=== PATIENT | female | born 1995 | race Caucasian/White ===

== ENCOUNTER 2017-01-16 20:22 | Inpatient (IN) | payer OTHER ==
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
--- NOTE | ~2017-01-16 | DS ---
Unit #: [id number] #: [id number] Patient: EMMA CAMPO [id number] [facility] [place] [address] [id number] MR#: [id number] NAME: EMMA CAMPO ROOM: P252 Age: 21 Sex: F Admission Date: 01/16/2017 : 1995 Discharge Date: 01/22/2017 Attending Physician: Siva Thomas M.D. Primary Care Physician: Primary Care Physician No DISCHARGE SUMMARY IDENTIFYING DATA Ms. Campo is a 21-year-old single white female, who is a resident of [place], [place] and was referred and transferred to us from [facility]. DISCHARGE DIAGNOSES Psychiatric: Major depressive disorder, recurrent, moderate, without psychotic features; generalized anxiety disorder. Medical: Seizure disorder. Stressors: Moderate psychosocial stressors. HISTORY OF PRESENT ILLNESS Please see initial psychiatric evaluation for details. PAST PSYCHIATRIC HISTORY Please see initial psychiatric evaluation for details. PAST MEDICAL HISTORY Please see initial psychiatric evaluation for details. HOSPITAL COURSE The patient [facility] and was oriented to the hospital environment. Routine p.r.n. medications were initiated, and she was started back on her home medications. Medications were adjusted and Prozac was started and increased to 40 mg a day and Vistaril was given to help her with the anxiety and doxepin was given to help her sleep as she was initially on trazodone, was complaining of some tolerability issues with the medication. She was taking medications regularly and was tolerating them fairly well and was able to show a decent and therapeutic response and was willing to continue treatment on an outpatient basis and as such, it was decided that she will be discharged home and will continue treatment on an outpatient basis. DISCHARGE MEDICATIONS Prozac 40 mg a day for depression, doxepin 50 mg at bedtime for sleep, Vistaril 50 mg t.i.d. for anxiety. DISCHARGE CONDITION Stable. PROGNOSIS Fair. Unit #: [id number] #: [id number] Patient: EMMA CAMPO Dictated by... Siva Thomas M.D. IAA/modl TD: 01/22/2017 07:09 JOB #: [id number] DISCHARGE SUMMARY X Siva Thomas MD DISCHARGE SUMMARY
--- NOTE | ~2017-01-16 | PN ---
Unit #: [id number] #: [id number] Patient: EMMA HOUSER [id number] [facility] [address] [place] [address] [id number] MR#: [id number] NAME: EMMA HOUSER ROOM: P252 Age: 21 Sex: F Admission Date: 01/16/2017 : 1995 Attending Physician: Siva Thomas M.D. Admitting Physician: Siva Thomas M.D. Primary Care Physician: Primary Care Physician Judit GUAN PROGRESS NOTES DATE OF SERVICE: 01/17/2017 SUBJECTIVE Ms. Houser is a 21-year-old white female who was seen today and chart was reviewed, and case was discussed with the staff. She has been anxious, withdrawn, though has not shown any agitation or irritability and has been cooperative with treatment recommendations and has been taking the medications and tolerating them fairly well with no reported side effects. MENTAL STATUS EXAMINATION Young white female who was casually dressed with a fair personal hygiene and appears to be in no acute distress or discomfort. She was awake and alert with intact orientation. Her mood was anxious with a congruent affect. She denies any suicidal or homicidal ideations. Her insight and judgment remain slightly impaired. TREATMENT PLAN 1. We will continue on her current medications and treatment protocol. We will monitor her response to medications and make further adjustments as needed. 2. We will continue to follow up. Dictated by... Genevieve Gustafson/angelique TD: 01/23/2017 02:52 JOB #: [id number] [facility] PROGRESS NOTES X Siva Thomas MD PROGRESS NOTE
--- NOTE | ~2017-01-16 | PN ---
Unit #: [id number] #: [id number] Patient: EMMA CAMPO [id number] [facility] [address] [place] [address] [id number] I MR#: [id number] NAME: EMMA CAMPO ROOM: P252 Age: 21 Sex: F Admission Date: 01/16/2017 : 1995 Attending Physician: Siva Thomas M.D. Admitting Physician: Siva Thomas M.D. Primary Care Physician: Primary Care Physician Judit GUAN PROGRESS NOTES DATE 01/19/2017 DISCUSSION Ms. Campo is a 21-year-old white female who was seen today and chart was reviewed and case was discussed with the staff. She has been anxious, withdrawn though has not shown any agitation and has been rather calm and cooperative with treatment recommendations as she has been taking medications and tolerating them fairly well with no reported side effects. MENTAL STATUS EXAMINATION Young white female who was casually dressed with fair personal hygiene and appears to be in no acute distress or discomfort. She was awake and alert on interaction with intact orientation. Her mood was anxious with congruent affect. She denies any suicidal or homicidal ideations. Her insight and judgement remains slightly impaired. TREATMENT PLAN 1. Will continue on current medications and treatment protocol. Will monitor her response to the medications and make further adjustments as needed. 2. Will continue to follow up. Dictated by... Siva Thomas M.D. IAA/lynn TD: 01/20/2017 16:13 JOB #: [id number] Unit #: [id number] #: [id number] Patient: EMAM CAMPO [facility] PROGRESS NOTES X Siva Thomas MD PROGRESS NOTE
--- NOTE | ~2017-01-16 | PN ---
Unit #: [id number] #: [id number] Patient: EMMA HOUSER [id number] [facility] [address] [place] [address] [id number] I MR#: [id number] NAME: EMMA HOUSER ROOM: P252 Age: 21 Sex: F Admission Date: 01/16/2017 : 1995 Attending Physician: Siva Thomas M.D. Admitting Physician: Siva Thomas M.D. Primary Care Physician: Primary Care Physician Judit GUAN PROGRESS NOTES DATE 01/20/2017 DISCUSSION Ms. Houser is a 21-year-old white female with mood disorder who was seen today and chart was reviewed and case was discussed with the staff. She was laying in her bed and was seen to be seclusive to herself and reports persistent depressive symptoms. Meanwhile, she has been taking the medications and tolerating them fairly well but she has requested an irregular visitation with her car carder. MENTAL STATUS EXAMINATION Young white female who was casually dressed with fair personal hygiene, appears to be in no acute distress or discomfort. She was awake and alert on interaction with intact orientation. Her mood was anxious with congruent affect. She denies any suicidal or homicidal ideations. Her insight and judgement remains slightly impaired. TREATMENT PLAN 1. We will continue her on her current medications and treatment protocol. We will monitor her response and make further adjustments as needed. 2. We will continue to follow up. Dictated by... Genevieve Gustafson/lloyd TD: 01/23/2017 03:53 JOB #: [id number] Unit #: [id number] #: [id number] Patient: EMMA HOUSER [facility] PROGRESS NOTES X Siva Thomas MD PROGRESS NOTE
--- NOTE | ~2017-01-16 | PN ---
Unit #: [id number] #: [id number] Patient: EMMA HOUSER [id number] [facility] [address] [place] [address] [id number] MR#: [id number] NAME: EMMA HOUSER ROOM: P252 Age: 21 Sex: F Admission Date: 01/16/2017 : 1995 Attending Physician: Siva Thomas M.D. Admitting Physician: Siva Thomas M.D. Primary Care Physician: Primary Care Physician Judit GUAN PROGRESS NOTES DATE 01/18/2017 DISCUSSION Ms. Houser is a 21-year-old white female with mood disorder who was seen today and chart was reviewed and case was discussed with the staff. She has been anxious, withdrawn and seclusive to herself and reports still in distress and discomfort and reports persistent depressive symptoms with feelings of hopelessness. Meanwhile, she has been taking medications. They were started yesterday and she has not shown any response therapeutic response. MENTAL STATUS EXAMINATION Young white female who was casually dressed with fair personal hygiene, appears to be in no acute distress or discomfort. She was awake and alert on interaction with intact orientation. Her mood was anxious with congruent affect. She reports having suicidal ideation but denies any homicidal ideations. Her insight and judgement remains slightly impaired. TREATMENT PLAN 1. We will continue her on her current medications and treatment protocol. We will monitor her response to the medication and make further adjustments as needed. 2. We will continue to follow up. Dictated by... Genevieve Gustafson/lloyd TD: 01/19/2017 01:42 JOB #: [id number] Unit #: [id number] #: [id number] Patient: EMMA HOUSER [facility] PROGRESS NOTES X Siva Thomas MD PROGRESS NOTE
[2017-01-17 09:43] LABS: BASOPHIL% 0.3 % (0-2.5); EOSINOPHIL# 0.1 X10e3 (0-0.7); EOSINOPHIL% 1.4 % (0.0-7.0); HEMATOCRIT 39.4 % (35.0-45.0); HEMOGLOBIN 12.9 gm/dL (12.0-16.0); LYMPHOCYTE# 2.6 X10e3 (1.0-3.5); LYMPHOCYTE% 42.3 % (17.0-45.0); MEAN CELL VOLUME 84.8 FL (83-96); MEAN CORPUSCULAR HEMOGLOBIN 27.8 PG (28-34); MEAN CORPUSCULAR HGB CONC 32.8 g/dL (30-36); MEAN PLATELET VOLUME 8.1 FL (6.5-11.5); MONOCYTE# 0.4 X10e3 (0-1.0); MONOCYTE% 6.9 % (3.0-12.0); NEUTROPHIL# 3.1 X10e3 (1.5-7.1); NEUTROPHIL% 49.1 % (40-75); PLATELET COUNT 251 X10e3 (140-420); RED BLOOD COUNT 4.64 X10e (3.90-5.30); RED CELL DISTRIBUTION WIDTH 13.6 % (11.0-15.5); WHITE BLOOD COUNT 6.2 X10e3 (4.0-10.5)
[2017-01-17 09:51] LABS: URINE APPEARANCE CLEAR; URINE BILIRUBIN NEG (NEG); URINE BLOOD NEG (NEG); URINE COLOR YELLOW; URINE GLUCOSE NEG (NEG); URINE KETONE NEG (NEG); URINE LEUKOCYTE ESTERASE 2+ (NEG); URINE NITRATE NEG (NEG); URINE PROTEIN NEG (NEG); URINE SPECIFIC GRAVITY 1.015 (1.003-1.035); URINE UROBILINOGEN 0.2 MG/DL (NEG)
[2017-01-17 09:54] LABS: DIFF IND NO
[2017-01-17 09:55] LABS: U HYALINE CASTS AUWI 0-2 /[LPF]; URBCS1 AUWI 0-2 /[HPF] (0-2); URINE BACTERIA AUWI 1+ (NEGATIVE); URINE SQUAMOUS EPITHELIAL CELL FEW /[HPF]
[2017-01-17 10:07] LABS: THYROID STIMULATING HORMONE 1.08 uIU/ml (0.34-5.60)
[2017-01-17 10:19] LABS: FREE THYROXIN (T4) 0.87 ng/dL (0.58-1.64)
[2017-01-17 10:47] LABS: ALKALINE PHOSPHATASE 76 U/L (32-92); ALT (SGPT) 16 U/L (10-40); AST (SGOT) 20 U/L (10-42); BILIRUBIN,TOTAL 0.4 mg/dL (0.2-2.0); BLOOD UREA NITROGEN 10 mg/dL (9-23); BUN/CREATININE RATIO 14.28; CALCIUM SERUM 9.4 mg/dL (8.4-10.2); CARBON DIOXIDE 26 mmol/L (22-31); CHLORIDE 104 mmol/L (100-111); CREATININE SERUM 0.7 mg/dL (0.6-1.4); GLOM FILT RATE Estimated ABOVE60 mL/min (>60); GLUCOSE FASTING 92 mg/dL (70-110); POTASSIUM 4.3 mmol/L (3.5-5.1); PROTEIN TOTAL SERUM 7.6 g/dL (6.0-8.3); SODIUM 138 mmol/L (135-145)
[2017-01-17 11:02] LABS: AMPHETAMINE NEG (NEG); BARBITURATES NEG (NEG); BENZODIAZEPINES NEG (NEG); COCAINE NEG (NEG); MARIJUANA NEG (NEG); OPIATES NEG (NEG); TRICYCLIC ANTIDEPRESSANTS NEG (NEG); U METHADONE NEG (NEG)
== END 2017-01-22 13:15 | disposition home or self-care (01) | DRG 885 ==
LOC: P1E 20:22 → P2L 01-18 16:22
PROVIDERS: Psychiatry & Neurology Psychiatry
DX: F33.1 Major depressive disorder, recurrent, moderate (principal); G40.909 Epilepsy, unspecified, not intractable, without status epilepticus; E66.9 Obesity, unspecified; F41.1 Generalized anxiety disorder; Z56.0 Unemployment, unspecified
CPT/HCPCS: 80053; 80307; 81003; 84439; 84443; 84703; 85025